=== PATIENT | male | born 1995 | race African-American/Black ===

== ENCOUNTER 2022-03-11 12:20 | Emergency (ER) | payer BC, SELFPAY ==
[2022-03-11] MEDS ORDERED: Sterile Water 10 ML ONE (13:06)
[2022-03-11] MEDS ORDERED: Azithromycin 250 MG TAB ONE (13:06)
[2022-03-11] MEDS ORDERED: cefTRIAXone\\ROCEPHIN 500 MG VIAL ONE (13:06)
[2022-03-11 13:07] LABS: Bilirubin Neg (Negative); Blood, Urine 25 (Negative); Clarity Clear (Clear); Glucose, Urine (Dipstick) Normal (Negative); Ketone, Urine Negative (Negative); Leukocyte Negative (Negative); Nitrite Negative (Negative); Protein, Urine (Dipstick) 30 mg/dl (Neg-Trace)
[2022-03-11 13:32] LABS: RBC/HPF 0-3 HPF (0-3); Squamous Epithelial 0-3 HPF (0-3); WBC/HPF 0-3 HPF (0-3)
[2022-03-11 13:33] LABS: Bacteria/HPF None Seen HPF (None Seen)
[2022-03-12 18:00] LABS: Chlam.trachomatis by PCR,Urine Not Detected (NotDetected)
== END 2022-03-11 14:45 | disposition home or self-care (01) ==
LOC: CSHERS 12:20
DX: N34.1 Nonspecific urethritis (principal); F17.210 Nicotine dependence, cigarettes, uncomplicated
CPT/HCPCS: 81003; 81015; 87491; 87591; 96372; 99283; J0696

== ENCOUNTER 2023-02-02 16:58 | Emergency (ER) | payer SELFPAY | END 2023-02-02 17:45 | disposition home or self-care (01) | LOC: CSHERS 16:58 | DX: B34.9 Viral infection, unspecified (principal); Z20.822 Contact with and (suspected) exposure to COVID-19; F17.290 Nicotine dependence, other tobacco product, uncomplicated | CPT/HCPCS: 87635; 99284 ==

== ENCOUNTER 2023-02-15 08:36 | Emergency (ER) | payer BC, SELFPAY ==
[2023-02-15] MEDS ORDERED: Fluorescein Opthalmic Strip ONE (09:21)
[2023-02-15] MEDS ORDERED: Tetracaine 0.5% PF 4 ML BOT ONE (09:21)
== END 2023-02-15 09:45 | disposition home or self-care (01) ==
LOC: CSHERS 08:36
DX: S05.01XA Injury of conjunctiva and corneal abrasion without foreign body, right eye, initial encounter (principal); X58.XXXA Exposure to other specified factors, initial encounter
CPT/HCPCS: 99283

== ENCOUNTER 2023-04-22 23:47 | Emergency (ER) | payer BC ==
[2023-04-23 01:15] LABS: SARS-CoV-2 NAA Rapid Test Not Detected (NotDetected)
== END 2023-04-23 00:45 | disposition home health service, planned readmission (86) ==
LOC: CSHERS 23:47
DX: R11.0 Nausea (principal); F17.210 Nicotine dependence, cigarettes, uncomplicated; Z20.822 Contact with and (suspected) exposure to COVID-19
CPT/HCPCS: 99283

== ENCOUNTER 2023-07-23 23:41 | Emergency (ER) | payer BC ==
[2023-07-24] MEDS ORDERED: Ondansetron ODT 4 MG TAB ONE (00:09)
== END 2023-07-24 00:16 | disposition home or self-care (01) ==
LOC: CSHERS 23:41
DX: R11.2 Nausea with vomiting, unspecified (principal); F17.290 Nicotine dependence, other tobacco product, uncomplicated
CPT/HCPCS: 99283; Q0162

== ENCOUNTER 2023-08-09 21:55 | Emergency (ER) | payer OTHER, BC ==
[2023-08-10] MEDS ORDERED: Ibuprofen 200 MG TAB ONE (00:05)
== END 2023-08-10 00:10 | disposition home or self-care (01) ==
LOC: CSHERS 21:55
DX: M62.830 Muscle spasm of back (principal); F17.290 Nicotine dependence, other tobacco product, uncomplicated; F17.210 Nicotine dependence, cigarettes, uncomplicated; V89.2XXA Person injured in unspecified motor-vehicle accident, traffic, initial encounter
CPT/HCPCS: 99283

== ENCOUNTER 2024-05-15 09:26 | Emergency (ER) | payer BC ==
[2024-05-15 11:07] LABS: Bilirubin Neg (Negative); Blood, Urine 25 (Negative); Clarity Clear (Clear); Glucose, Urine (Dipstick) Normal (Negative); Ketone, Urine Negative (Negative); Leukocyte Negative (Negative); Nitrite Negative (Negative); Protein, Urine (Dipstick) 30 mg/dl (Neg-Trace)
[2024-05-15] MEDS ORDERED: cefTRIAXone (ROCEPHIN) 1 GM VIAL ONE (11:08)
[2024-05-15 11:17] LABS: CAUTI Indications for Culture Pelvic or flank pain; RBC/HPF 0-3 HPF (0-3); WBC/HPF None Seen HPF (0-3)
[2024-05-15 11:18] LABS: Bacteria/HPF 1+ HPF (None Seen); Mucous/LPF 1+ LPF (<2+); Squamous Epithelial 0-3 HPF (0-3); Urine Culture Reflex No No
[2024-05-17 05:32] LABS: Chlam.trachomatis by PCR,Urine Not Detected (NotDetected); GC N.gonorrhoeae PCR,UrineVOID Not Detected (NotDetected)
== END 2024-05-15 11:24 | disposition home or self-care (01) ==
LOC: CSHERS 09:26
DX: N43.3 Hydrocele, unspecified (principal); R30.0 Dysuria; F17.210 Nicotine dependence, cigarettes, uncomplicated; F17.290 Nicotine dependence, other tobacco product, uncomplicated; Z55.0 Illiteracy and low-level literacy
CPT/HCPCS: 76870; 81001; 87491; 87591; 93976; J0696